=== PATIENT | female | born 1975 | race Caucasian/White ===

== ENCOUNTER → 2017-04-28 | Emergency (ER) | payer OTHER ==
[~2017-04-28] VITALS: Ht 165.1 cm; Wt 66.7 kg
[~2017-04-28] MED LIST: PRENA1 TRUE CO1 EACH; PROGESTERO50 MG/1 M1
== END | disposition home or self-care (01) ==
LOC: ER 01:42
DX: O20.0 Threatened abortion (principal)

== ENCOUNTER → 2017-07-28 | Emergency (ER) | payer OTHER ==
[~2017-07-28] VITALS: Ht 165.1 cm; Wt 66.7 kg
== END | disposition home or self-care (01) ==
LOC: ER 10:03
DX: O03.9 Complete or unspecified spontaneous abortion without complication (principal)

== ENCOUNTER 2018-04-29 12:02 | Emergency (ER) | payer OTHER ==
[~2018-04-29] VITALS: Ht 165.1 cm; Wt 66.7 kg
[2018-04-29] MEDS ORDERED: DIAZEPAM10 MG PO (14:12)
== END 2018-04-29 14:55 | disposition home or self-care (01) ==
LOC: ER 12:02
DX: M54.5 Low back pain (principal)

== ENCOUNTER 2019-10-11 09:53 | Emergency (ER) | payer OTHER ==
[~2019-10-11] VITALS: Ht 165.1 cm; Wt 65.8 kg
[~2019-10-11 09:53] MED LIST changes: +DIAZEPAM10 MG PO
== END 2019-10-11 14:20 | disposition home or self-care (01) ==
LOC: ER 09:53
DX: J01.80 Other acute sinusitis (principal); R05 Cough; R53.81 Other malaise

== ENCOUNTER 2020-04-21 12:03 | Emergency (ER) | payer OTHER ==
[~2020-04-21] VITALS: Ht 165.1 cm; Wt 66.7 kg
== END 2020-04-21 13:40 | disposition home or self-care (01) ==
LOC: ER 12:03
DX: J04.0 Acute laryngitis (principal)